=== PATIENT | male | born 1980 | race Caucasian/White ===

== ENCOUNTER 2021-11-23 13:19 | Emergency (ER) | payer OTHER ==
--- NOTE | 2021-11-23 15:10 | ED ---
General Adult HPI - General Source: patient, police, RN notes reviewed, old records reviewed Mode of arrival: ambulatory <Junior Weaver - Last Filed: 11/23/21 19:53> <Junior Montemayor - Last Filed: 11/23/21 23:21> - General Chief complaint: Psychiatric Symptoms Stated complaint: petition Time Seen by Provider: 11/23/21 13:19 - History of Present Illness Initial comments: This is a 41-year-old male who is brought in and petition by the police officers. Patient was brought in because he was acting in a bizarre manner around town he was threatening to throw 100 he also was stating that he killed somebody and that he was going to rape somebody but he wasn't making any sense he was not answering questions appropriately. Patient also made statements that he tested crated somebodies land and because of this the ICU come back and He Started to Cry. Patient did state that he did do methamphetamines (Junior Weaver) - Related Data Allergies Allergy/AdvReac Type Severity Reaction Status Date / Time Unable to Assess Allergy Verified 11/23/21 13:38 Review of Systems ROS Other: All systems not noted in ROS Statement are negative. <Junior Weaver - Last Filed: 11/23/21 19:53> ROS Other: All systems not noted in ROS Statement are negative. <Junior Montemayor - Last Filed: 11/23/21 23:21> ROS Statement: Those systems with pertinent positive or pertinent negative responses have been documented in the HPI. Past Medical History Past Medical History: Unable to Obtain History of Any Multi-Drug Resistant Organisms: Unobtainable Past Surgical History: Unable to Obtain Past Psychological History: Unable to Obtain Smoking Status: Current every day smoker Past Alcohol Use History: None Reported <Junior Weaver - Last Filed: 11/23/21 19:53> General Exam <Junior Weaver - Last Filed: 11/23/21 19:53> - General Exam Comments Initial Comments: GENERAL: Patient is well-developed and well-nourished. Patient is nontoxic and well- hydrated and is in no acute distress. ENT: Neck is soft and supple. No significant lymphadenopathy is noted. Oropharynx is clear. Moist mucous membranes. Neck has full range of motion without eliciting any pain. EYES: The sclera were anicteric and conjunctiva were pink and moist. Extraocular movements were intact and pupils were equal round and reactive to light. Eyelids were unremarkable. PULMONARY: Unlabored respirations. Good breath sounds bilaterally. No audible rales rhonchi or wheezing was noted. CARDIOVASCULAR: There is a regular rate and rhythm without any murmurs gallops or rubs. ABDOMEN: Soft and nontender with normal bowel sounds. SKIN: Skin is clear with no lesions or rashes and otherwise unremarkable. NEUROLOGIC: Patient is alert and oriented unable to ascertain because the patient is very bizarre. Cranial nerves II through XII are grossly intact. Motor and sensory are also intact. Normal speech, volume and content. Symmetrical smile. MUSCULOSKELETAL: Normal extremities with adequate strength and full range of motion. PSYCHIATRIC: Patient is making bizarre statements and is unable to answer questions directly. (Junior Weaver) Course Vital Signs 11/23/21 13:34 Temperature 98.0 F Pulse Rate 105 H Respiratory 18 Rate Blood Pressure 125/86 O2 Sat by Pulse 99 Oximetry Medical Decision Making <Junior Weaver - Last Filed: 11/23/21 19:53> <Junior Montemayor - Last Filed: 11/23/21 23:21> - Medical Decision Making EPS evaluated the patient and determined the patient needed to be admitted (Junior Weaver) 41-year-old male who did come in for psychiatric evaluation, admission for psychiatric evaluation, positive coronavirus test requiring inpatient observation and psychiatric consult (Junior Montemayor) - Lab Data Lab Results 11/23/21 11/23/21 Range/Units 15:45 21:16 Urine Opiates Screen Not Detected (NotDetected) Ur Oxycodone Screen Not Detected (NotDetected) Urine Methadone Screen Not Detected (NotDetected) Ur Propoxyphene Screen Not Detected (NotDetected) Ur Barbiturates Screen Not Detected (NotDetected) U Tricyclic Antidepress Not Detected (NotDetected) Ur Phencyclidine Scrn Not Detected (NotDetected) Ur Amphetamines Screen Not Detected (NotDetected) U Methamphetamines Scrn Not Detected (NotDetected) U Benzodiazepines Scrn Detected H (NotDetected) Urine Cocaine Screen Not Detected (NotDetected) U Marijuana (THC) Screen Detected H (NotDetected) Coronavirus (PCR) Detected A (Not Detectd) Disposition Time of Disposition: 19:54 <Junior Weaver - Last Filed: 11/23/21 19:53> Is patient prescribed a controlled substance at d/c from ED?: No <Junior Montemayor - Last Filed: 11/23/21 23:21> Clinical Impression: Drug-induced psychotic disorder, Coronavirus infection Disposition: ADMITTED IP TO THIS HOSP Condition: Fair Referrals: Becky Maher DO [Primary Care Provider] - 1-2 days
[2021-11-23 17:04] LABS: Amphetamine Screen,Urine Not Detected (NotDetected); Barbiturate Screen,Urine Not Detected (NotDetected); Benzodiazepines Screen,Urine Detected (NotDetected); Cocaine Screen,Urine Not Detected (NotDetected); Methadone Screen, Urine Not Detected (NotDetected); Opiate Screen,Urine Not Detected (NotDetected); Oxycodone Screen, Urine Not Detected (NotDetected); Phencyclidine Screen,Urine Not Detected (NotDetected); Tricyclic Antidepressant,Urine Not Detected (NotDetected); Urn Cannabinoid Scrn Detected (NotDetected)
[2021-11-23] MEDS ORDERED: LORazepam 1 MG TAB PO STA (21:21)
[2021-11-24] MEDS ORDERED: OLANZapine 10 MG VIAL IM PRN (11:50)
--- NOTE | 2021-11-24 12:21 | XR ---
EXAMINATION TYPE: XR chest 1V portable DATE OF EXAM: 11/24/2021 12:09 PM COMPARISON: None TECHNIQUE: XR chest 1V portable Frontal view of the chest. CLINICAL INDICATION:Male, 41 years old with history of pneumonia; FINDINGS: Lungs/Pleura: There is no evidence of pleural effusion, focal consolidation, or pneumothorax. Pulmonary vascularity: Unremarkable. Heart/mediastinum: Cardiomediastinal silhouette is unremarkable. Musculoskeletal: No acute osseous pathology. IMPRESSION: No acute cardiopulmonary disease/process.
[2021-11-24 12:24] LABS: HCT 48.5 % (39.0-53.0); HGB 15.9 gm/dL (13.0-17.5); MCH 30.9 pg (25.0-35.0); MCHC 32.7 g/dL (31.0-37.0); MCV 94.5 fL (80.0-100.0); Mean Platelet Volume 7.1; Platelet Count 369 k/uL (150-450); RBC 5.13 m/uL (4.30-5.90); RDW 12.5 % (11.5-15.5); WBC 11.1 k/uL (3.8-10.6)
[2021-11-24 12:50] LABS: ALT 48 U/L (4-49); AST 33 U/L (17-59); African American GFR (CKD) >90 (>60 ml/min/1.73 sqM); Albumin 4.5 g/dL (3.5-5.0); Albumin/Globulin Ratio 1.5; Alkaline Phosphatase 90 U/L (38-126); Anion Gap 11 mmol/L; Blood Urea Nitrogen 16 mg/dL (9-20); Calcium 9.2 mg/dL (8.4-10.2); Carbon Dioxide 27 mmol/L (22-30); Chloride 101 mmol/L (98-107); Glucose 121 mg/dL (74-99); Non-African American GFR(CKD) >90 (>60 ml/min/1.73 sqM); Potassium 4.8 mmol/L (3.5-5.1); Sodium 139 mmol/L (137-145); Total Bilirubin 1.1 mg/dL (0.2-1.3); Total Protein 7.5 g/dL (6.3-8.2)
--- NOTE | 2021-11-24 13:20 | P.CN ---
Psychiatric Consult - . Consult date: 11/24/21 Consult:: 11/24/21 13:19 IDENTIFYING DATA: This patient is a , self-employed, 41-year-old male with significant history of bipolar disorder who presented to the hospital on 11/23/2021, brought in by police for psychiatric evaluation. HISTORY OF PRESENT ILLNESS: The patient presented to the hospital on 11/23/2021, brought in by police for psychiatric evaluation. The patient was petitioned. As per petition, the patient was swinging a rock and panic attacks around. He stated that he was trying to scare people and he was seeing ghosts. As per EPS report, he was notably paranoid, endorsing auditory and visual hallucinations, and possibly engaged in substance use. He was subsequently admitted to the medical floor due to testing positive for COVID-19. Upon evaluation on the medical floor, the patient does endorse significant psychotic and manic symptoms. He does report that he was recently released from psychiatric unit in [place] however is unable to state exactly when. He is unable to provide a clear history of events leading up to this hospitalization however does endorse homicidal ideation towards "Brien and Williams." He is unable to say exactly why. He does endorse auditory hallucinations in the form of voices telling him to do things. He also states that he receives special messages from the radio and television including the [employer] which is playing in his room. He also expresses that he sees ghosts. In regards to mood symptoms, the patient endorses a significant history of nav and states that he has not been sleeping for days prior to this admission. He reports that he feels like he will sleep better tonight as he is in the hospital. He does report impulsivity and racing thoughts. The patient states that he was on a regimen of Zyprexa and Depakote prior to coming to this hospital however has been nonadherent with these medications. He is agreeable to starting these medications today. PAST PSYCHIATRIC HISTORY: Patient has a history of bipolar disorder. The patient is able to recall Zyprexa and Depakote. The patient reports that he has had 4 inpatient psychiatric hospitalizations with most recently an admission being in [facility]. He is open with [facility]. He denies any prior attempts at suicide. PAST MEDICAL HISTORY: No reported medical problems. ALLERGIES: NO KNOWN DRUG ALLERGIES CHEMICAL DEPENDENCY HISTORY: Patient admits to daily tobacco use. He denies any alcohol or illicit drug use. Although he did report he previously used methamphetamines, he later stated that he actually "ingested real glass with the hopes that it would scrape his insides to clean his colon." He tested negative for any methamphetamines. FAMILY PSYCHIATRIC/SUBSTANCE USE HISTORY: Unable to assess. SOCIAL HISTORY: Patient reports that he was born and [place]. He is . 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 MENTAL STATUS EXAM: General Appearance: Patient appears to be stated age is alert, pleasant, and cooperative. Patient appears to have fair hygiene and grooming wearing hospital gown with fair eye contact. Behavior: Patient is calmly seated upright in his chair without any agitated behavior. Speech: Patient's speech is fluent and nonpressured. Mood/Affect: Patient reports their mood is "I was scared but am better now", affect is slightly expansive and intense. Suicidality/Homicidality: Patient denies any suicidal ideation however endorses a homicidal ideation. Perceptions: Patient endorses both auditory and visual hallucinations. Though content/process: The patient endorses ideas of reference, paranoid delusions, thought insertion, thought projection, flight of ideas, and gross disorganization. Memory and concentration: The patient is alert and oriented to person and place only. Concentration was grossly poor. Judgment and insight: Poor IMPRESSIONS: Bipolar 1 disorder, manic episode versus schizoaffective disorder, bipolar type Tobacco use disorder PLAN: -At this time patient DOES meet criteria for inpatient psychiatric admission. The patient does appear to be overtly psychotic and manic. He will require inpatient psychiatric admission for stabilization and reintroduction of his medications. -Will perform Duty to Warn for Saira when we clarify who these are or will contact the local PD prior to patient discharge. -Would recommend the following medication changes/additions: Start Zyprexa 5 mg by mouth twice a day for mood stabilization/psychosis Start Depakote 1000 mg by mouth at bedtime for mood stabilization - Valproate level ordered. Start Zyprexa 5 mg IM 3 times a day when necessary for agitation -Continue 1:1 sitter for safety -Cannot leave AMA at this time. Patient will need a petition and certification if attempting to leave AMA. -Will continue to follow along -When medically stable, patient is eligible for transfer to a [facility] bed when available. Patient is positive for COVID-19. Laboratory Results WBC 11.1 k/uL (3.8-10.6) H 11/24/21 12:06 RBC 5.13 m/uL (4.30-5.90) 11/24/21 12:06 Hgb 15.9 gm/dL (13.0-17.5) 11/24/21 12:06 Hct 48.5 % (39.0-53.0) 11/24/21 12:06 MCV 94.5 fL (80.0-100.0) 11/24/21 12:06 MCH 30.9 pg (25.0-35.0) 11/24/21 12:06 MCHC 32.7 g/dL (31.0-37.0) 11/24/21 12:06 RDW 12.5 % (11.5-15.5) 11/24/21 12:06 Plt Count 369 k/uL (150-450) 11/24/21 12:06 MPV 7.1 11/24/21 12:06 Sodium 139 mmol/L (137-145) 11/24/21 12:06 Potassium 4.8 mmol/L (3.5-5.1) 11/24/21 12:06 Chloride 101 mmol/L (98-107) 11/24/21 12:06 Carbon Dioxide 27 mmol/L (22-30) 11/24/21 12:06 Anion Gap 11 mmol/L 11/24/21 12:06 BUN 16 mg/dL (9-20) 11/24/21 12:06 Creatinine 0.97 mg/dL (0.66-1.25) 11/24/21 12:06 Est GFR (CKD-EPI)AfAm >90 (>60 ml/min/1.73 sqM) 11/24/21 12:06 Est GFR (CKD-EPI)NonAf >90 (>60 ml/min/1.73 sqM) 11/24/21 12:06 Glucose 121 mg/dL (74-99) H 11/24/21 12:06 Calcium 9.2 mg/dL (8.4-10.2) 11/24/21 12:06 Total Bilirubin 1.1 mg/dL (0.2-1.3) 11/24/21 12:06 AST 33 U/L (17-59) 11/24/21 12:06 ALT 48 U/L (4-49) 11/24/21 12:06 Alkaline Phosphatase 90 U/L (38-126) 11/24/21 12:06 Total Protein 7.5 g/dL (6.3-8.2) 11/24/21 12:06 Albumin 4.5 g/dL (3.5-5.0) 11/24/21 12:06 Globulin 3.0 g/dL 11/24/21 12:06 Albumin/Globulin Ratio 1.5 11/24/21 12:06 Urine Opiates Screen Not Detected (NotDetected) 11/23/21 15:45 Ur Oxycodone Screen Not Detected (NotDetected) 11/23/21 15:45 Urine Methadone Screen Not Detected (NotDetected) 11/23/21 15:45 Ur Propoxyphene Screen Not Detected (NotDetected) 11/23/21 15:45 Ur Barbiturates Screen Not Detected (NotDetected) 11/23/21 15:45 Valproic Acid 30.0 ug/mL 11/24/21 12:06 U Tricyclic Antidepress Not Detected (NotDetected) 11/23/21 15:45 Ur Phencyclidine Scrn Not Detected (NotDetected) 11/23/21 15:45 Ur Amphetamines Screen Not Detected (NotDetected) 11/23/21 15:45 U Methamphetamines Scrn Not Detected (NotDetected) 11/23/21 15:45 U Benzodiazepines Scrn Detected (NotDetected) H 11/23/21 15:45 Urine Cocaine Screen Not Detected (NotDetected) 11/23/21 15:45 U Marijuana (THC) Screen Detected (NotDetected) H 11/23/21 15:45 Coronavirus (PCR) Detected (Not Detectd) A 11/23/21 21:16 Vital Signs Temp 98.4 F 11/24/21 08:00 Pulse 101 H 11/24/21 08:00 Resp 18 11/24/21 08:00 BP 137/80 11/24/21 08:00 Pulse Ox 99 11/24/21 08:00 FiO2 Intake & Output 11/23/21 11/24/21 11/24/21 18:59 06:59 18:59 Intake Total 296 Balance 296 Weight 83.915 kg 83.915 kg Intake: Oral 296 11/24/21 13:20
--- NOTE | 2021-11-24 14:34 | P.HPIM ---
History of Present Illness H&P Date: 11/24/21 (delayed charting seen at 0930) Chief Complaint: Odd behaviors Patient is a 41-year-old male with bipolar disorder, intermittent tobacco use, and prior LSD use who presented to the ER after being brought in by police for psychiatric evaluation. He had been found with urinary and visual hallucinations. He was initially seen in the emergency department and had a urine drug screen completed which was positive for THC and benzodiazepines area he was also found to be positive for Covid and therefore was sent to the medical floor. Patient seen and examined at bedside. He reports that he is feeling much better than yesterday. He states that yesterday he was very "angry" with everyone he just wanted them to listen to what he had to say. He does endorse that he was probably seeing and hearing things. He adamantly denies any recent illicit substance use but states he has used LSD in the past and likes to use it from time to time. He reports that he was feeling as though he could hurt people yesterday but feels much better now. He then tells me he is unsure where he got Covid but believes it was likely from the intermediate in [place]. He states he was there for 2 days last week. He denies any cough, cold, fever, runny nose, he does admit to a sore scratchy throat. He denies any nausea, vomiting. He denies any alcohol use but states he has been eating and drinking well. Pertinent positives and negatives as discussed in HPI, a complete review of systems was performed and all other systems are negative. Vital signs reviewed General: nontoxic, no distress, appears at stated age Derm: warm, dry Head: atraumatic, normocephalic, symmetric Eyes: EOMI, no lid lag, anicteric sclera, pupils equal round reactive to light ENT: Nose and ears atraumatic, no thrush, + pharyngeal erythema Neck: No thyromegaly, no cervical lymphadenopathy, trachea midline, supple Mouth: no lip lesion, mucus membranes moist Cardiovascular: S1S2 reg, no murmur, positive posterior tibial pulse bilateral, no edema, capillary refill less than 2 seconds Lungs: clear to auscultation bilateral, no rhonchi, no rales, no wheeze, no accessory muscle use Abdominal: soft, nontender to palpation, no guarding, no appreciable organomegaly, normal bowel sounds Ext: no gross muscle atrophy, muscle strength muscle strength 5 out of 5 in all 4 extremities, no contractures Neuro: CN II-XII grossly intact, light touch intact all 4 extremities, finger to nose within normal limits, Psych: Alert, oriented, appears anxious and unable to sit still. Assessment/Plan: COVID Infection -I checked stat blood work which revealed a white blood cell count of 11.1 -Check x-ray which revealed no acute process. Bipolar disorder with nav - Psych recs - Repeat inpatient criteria -They have resume patient on Zyprexa and Depakote The patient is admitted with an anticipated less than 2 midnight stay for evaluation of COVID CODE STATUS:full by default DVT prophylaxis: SCDs Discussed with: patient, nursing, psychiatry Anticipated discharge date: in AM Anticipated discharge place: [facility] A total of 55 minutes was spent on the care of this complex patient more than 50% of the time was spent in counseling and care coordination. Past Medical History Past Medical History: No Reported History History of Any Multi-Drug Resistant Organisms: Unobtainable Additional Past Surgical History / Comment(s): pilonidal cyst extraction Past Psychological History: Unable to Obtain Smoking Status: Unknown if ever smoked Past Alcohol Use History: Occasional Past Drug Use History: Marijuana, Methamphetamine Additional Drug Use History / Comment(s): LSD - Past Family History Father Family Medical History: Hypertension Mother Family Medical History: COPD Medications and Allergies Home Medications Medication Instructions Recorded Confirmed Type Divalproex Sodium [Depakote] 500 mg PO HS 11/24/21 11/24/21 History Divalproex [Depakote] 250 mg PO DAILY 11/24/21 11/24/21 History Nicotine Gum (Polacrilex) 2 mg BUCCAL Q2H PRN 11/24/21 11/24/21 History [Nicorette] Temazepam [Restoril] 15 mg PO HS PRN 11/24/21 11/24/21 History chlorproMAZINE HCL [Thorazine] 100 mg PO DIRECTED 11/24/21 11/24/21 History traZODone HCL [Desyrel] 100 mg PO HS 11/24/21 11/24/21 History Allergies Allergy/AdvReac Type Severity Reaction Status Date / Time No Known Allergies Allergy Unverified 11/24/21 09:28 Physical Exam Osteopathic Statement: *. No significant issues noted on an osteopathic structural exam other than those noted in the History and Physical/Consult. Vitals: Vital Signs Temp Pulse Resp BP Pulse Ox 11/24/21 08:00 98.4 F 101 H 18 137/80 99 Intake and Output 11/23/21 11/24/21 11/24/21 22:59 06:59 14:59 Intake Total 296 Balance 296 Intake: Oral 296 Other: Weight 83.915 kg Results CBC & Chem 7: 11/24/21 12:06 11/24/21 12:06 Labs: Abnormal Lab Results - Last 24 Hours (Table) 11/23/21 11/23/21 11/24/21 Range/Units 15:45 21:16 12:06 WBC 11.1 H (3.8-10.6) k/uL Glucose (74-99) mg/dL U Benzodiazepines Scrn Detected H (NotDetected) U Marijuana (THC) Screen Detected H (NotDetected) Coronavirus (PCR) Detected A (Not Detectd) 11/24/21 Range/Units 12:06 WBC (3.8-10.6) k/uL Glucose 121 H (74-99) mg/dL U Benzodiazepines Scrn (NotDetected) U Marijuana (THC) Screen (NotDetected) Coronavirus (PCR) (Not Detectd)
[2021-11-24] MEDS: DIVALPROEX ER 500 MG TAB.ER.24H PO SCH (20:28)
[2021-11-24] MEDS: OLANZapine 5 MG TAB PO SCH (20:28)
[2021-11-25] MEDS: OLANZapine 5 MG TAB PO SCH (08:44)
[2021-11-25] MEDS ORDERED: ACETAMINOPHEN TAB 325 MG TAB PO PRN (09:30)
[2021-11-25] MEDS ORDERED: ONDANSETRON 4 MG/2 ML VIAL IVP PRN (09:30)
[2021-11-25] MEDS ORDERED: BENZOCAINE/MENTHOL LOZENG 1 EACH LOZENGE MUCOUS MEM PRN (14:12)
--- NOTE | 2021-11-25 14:13 | P.PN ---
Subjective Progress Note Date: 11/25/21 (delayed charting seen at 1030) Patient is a 41-year-old male with bipolar disorder, intermittent tobacco use, and prior LSD use who presented to the ER after being brought in by police for psychiatric evaluation. He had been found with urinary and visual hallucinations. He was initially seen in the emergency department and had a urine drug screen completed which was positive for THC and benzodiazepines area he was also found to be positive for Covid and therefore was sent to the medical floor. He has seen by psychiatry and determine to need inpatient psychiatric care, however we have been unable to locate the unit that will take a Covid positive patient. Patient seen and examined at bedside. He reports that his sore throat is slightly better than yesterday. He denies any chest pain, shortness of breath, nausea. He understands that we are looking for placement go for mental health with COVID General: nontoxic, no distress, appears at stated age Derm: warm, dry Head: atraumatic, normocephalic, symmetric Eyes: EOMI, no lid lag, anicteric sclera Mouth: no lip lesion, mucus membranes moist Cardiovascular: S1S2 reg, no murmur, positive posterior tibial pulse bilateral, Lungs: CTA bilateral, no rhonchi, no rales , no accessory muscle use Abdominal: soft, nontender to palpation, no guarding, no appreciable organomegaly Ext: no gross muscle atrophy, no edema, no contractures Neuro: CN II-XI grossly intact, no focal neuro deficits Psych: Alert, oriented, blunted affect Assessment/Plan: COVID Infection - stable - supportive care - add cepachol - recheck COVID swab Bipolar disorder with nav - Psych recs - meets inpatient criteria, but improving -continue Zyprexa and Depakote Objective - Vital Signs Vital signs: Vital Signs Temp 97.5 F L 11/25/21 13:45 Pulse 80 11/25/21 13:45 Resp 18 11/25/21 13:45 BP 147/80 11/25/21 13:45 Pulse Ox 99 11/25/21 13:45 FiO2 Intake & Output 11/24/21 11/25/21 11/25/21 18:59 06:59 18:59 Intake Total 892 592 Balance 892 592 Intake: Oral 892 592 Other: Voiding Method Toilet # Voids 4 4 - Labs CBC & Chem 7: 11/24/21 12:06 11/24/21 12:06
--- NOTE | 2021-11-25 14:15 | P.PN ---
Progress Note - Text Progress Note Date: 11/25/21 Interval History: Patient was seen resting in bed and was directable and agreeable to speak with the marine underwriter in his room. Currently, the patient is reporting that he is feeling significantly better. He reports that he was able to sleep well and that he has a good appetite. He is vehemently denying any suicidal or homicidal ideation, intention, and/or plan. He states that Brien and Williams are actually friends of his and that he was "quite out of it." He states that he has no intention to ever hurt them. He is not reporting any auditory or visual hallucinations at this time. He is currently alert and oriented to person, place, and time. The patient denies any paranoia or other delusions. He has been adherent with his medications and is not endorsing any significant side effects aside from mild sedation. He wishes to take Zyprexa only at bedtime. Mental Status Exam: General Appearance: Patient appears to be stated age is alert, directable, and cooperative. Behavior: Patient is calmly seated without any agitated behavior. Speech: Patient's speech is fluent and nonpressured. Mood/Affect: Mood is improving mildly, affect is congruent and euthymic. Suicidality/Homicidality: Patient denies having any suicidal or homicidal ideation intent or plan. Perceptions: Patient denies any visual hallucinations and denies any auditory hallucinations Though content/process: There is no evidence of any delusional thought content and thought process is linear and goal-directed. Memory and concentration: AOX3, grossly intact for the purposes of this session Judgment and insight: Improving mildly Vital Signs Temp 97.5 F L 11/25/21 13:45 Pulse 80 11/25/21 13:45 Resp 18 11/25/21 13:45 BP 147/80 11/25/21 13:45 Pulse Ox 99 11/25/21 13:45 FiO2 Intake & Output 11/24/21 11/25/21 11/25/21 18:59 06:59 18:59 Intake Total 892 592 Balance 892 592 Intake: Oral 892 592 Other: Voiding Method Toilet # Voids 4 4 Assessment Bipolar 1 disorder, manic episode versus schizoaffective disorder, bipolar type Tobacco use disorder Plan: -Will continue to observe for criteria for inpatient psychiatric admission. Will reassess tomorrow. Patient displayed significant improvement in regards to his target symptoms of psychosis and nav today. -Will perform Duty to Warn for Brien and Williams when we clarify who these are or will contact the local PD prior to patient discharge. Currently, the patient's immediate denying any homicidal ideation and said Alex Williams are actually friends of his and that he was "out of it." -Would recommend the following medication changes/additions: Change Zyprexa to 10 mg by mouth at bedtime for mood stabilization/psychosis Continue Depakote 1000 mg by mouth at bedtime for mood stabilization - Valproate level ordered. Continue Zyprexa 5 mg IM 3 times a day when necessary for agitation -Continue 1:1 sitter for safety -Cannot leave AMA at this time. Patient will need a petition and certification if attempting to leave AMA. -Will continue to follow along
[2021-11-25] MEDS: DIVALPROEX ER 500 MG TAB.ER.24H PO SCH (20:42)
[2021-11-25] MEDS ORDERED: OLANZapine 5 MG TAB PO SCH (21:00)
[2021-11-26 06:32] VITALS: RESP 16; TEMP 97.8
[2021-11-26 10:44] VITALS: BP 114/77; PULSE 66
--- NOTE | 2021-11-26 13:26 | P.DS ---
Providers Date of admission: 11/23/21 23:17 Expected date of discharge: 11/26/21 Attending physician: Kortney Nix MD Consults: 11/23/21 23:17 Consult Physician Routine Consulting Provider: Onel Gonzales Consult Reason/Comments: SI Do you want consulting provider notified?: Already Contacted Primary care physician: Becky Maher Hospital Course: Discharge Diagnosis: Bipolar 1 disorder with manic episode COVID-19 positive Tobacco abuse disorder Hospital Course: Patient is a 41-year-old male with bipolar disorder, intermittent tobacco use, and prior LSD use who presented to the ER after being brought in by police for psychiatric evaluation. He had been found with urinary and visual hallucinations. He was initially seen in the emergency department and had a urine drug screen completed which was positive for THC and benzodiazepines area he was also found to be positive for Covid and therefore was sent to the medical floor. He has seen by psychiatry and determine to need inpatient psychiatric care, however we have been unable to locate the unit that will take a Covid positive patient. His mental health medications were adjusted by psychiatry. He continued to improve and his homicidal ideations abated. Psychiatry cleared for discharge. Patient was subsequently discharged home in stable condition. He was given a 2 week prescription of his new Zyprexa and Depakote doses. He will follow with his primary care physician and his outpatient psychiatry team. Patient seen and examined at bedside. Feeling well. Sore throat has resolved. Having some muscle aching but overall feels better. Since that his mental health is doing much better. Vital signs reviewed and stable. General: nontoxic, no distress, appears at stated age Derm: warm, dry Head: atraumatic, normocephalic, symmetric Eyes: EOMI, no lid lag, anicteric sclera Mouth: no lip lesion, mucus membranes moist Cardiovascular: S1S2 reg, no murmur, positive posterior tibial pulse bilateral, Lungs: CTA bilateral, no rhonchi, no rales , no accessory muscle use Abdominal: soft, nontender to palpation, no guarding, no appreciable organomegaly Ext: no gross muscle atrophy, no edema, no contractures Neuro: CN II-XI grossly intact, no focal neuro deficits Psych: Alert, oriented, appropriate affect A total of 25 minutes of time were spent preparing this complex discharge summary. Patient was discharged on 11/26/21. Patient Condition at Discharge: Stable Plan - Discharge Summary New Discharge Prescriptions: New Divalproex ER [Depakote ER] 1,000 mg PO HS #30 tab OLANZapine [ZyPREXA] 10 mg PO HS #10 tab Continue Nicotine Gum (Polacrilex) [Nicorette] 2 mg BUCCAL Q2H PRN PRN Reason: Cravings Discontinued Divalproex Sodium [Depakote] 500 mg PO HS Divalproex [Depakote] 250 mg PO DAILY chlorproMAZINE HCL [Thorazine] 100 mg PO DIRECTED Temazepam [Restoril] 15 mg PO HS PRN PRN Reason: Insomnia traZODone HCL [Desyrel] 100 mg PO HS Discharge Medication List Nicotine Gum (Polacrilex) [Nicorette] 2 mg BUCCAL Q2H PRN 11/24/21 [History] Divalproex ER [Depakote ER] 1,000 mg PO HS #30 tab 11/26/21 [Rx] OLANZapine [ZyPREXA] 10 mg PO HS #10 tab 11/26/21 [Rx] Follow up Appointment(s)/Referral(s): Becky Maher DO [Primary Care Provider] - 1-2 days Activity/Diet/Wound Care/Special Instructions: Activity: as tolerated Diet: regular Special Instructions: Follow with your mental health provider. Discharge Disposition: HOME SELF-CARE
--- NOTE | 2021-11-26 13:32 | P.PN ---
Progress Note - Text Progress Note Date: 11/26/21 Interval History: Patient was seen resting in bed and was directable and agreeable to speak with the food writer in his room. Currently, the patient is denying any suicidal or homicidal ideation, intention, and/or plan. He is not reporting any auditory or visual hallucinations. He is denying any paranoia or other delusions. Patient has been adherent with his medication and is not endorsing any significant side effects at this time. He reports he has been sleeping well and eating well. He is also not reporting any significant medical symptoms in regards to his Covid- 19 infection. He vehemently denies any homicidal ideation towards "Saira." He is unable to provide last names to this provider. Mental Status Exam: General Appearance: Patient appears to be stated age is alert, directable, and cooperative. Friendly on approach. Behavior: Patient is calmly seated without any agitated behavior. Speech: Patient's speech is fluent and nonpressured. Mood/Affect: Mood is "feeling really good!," affect is bright and friendly. Suicidality/Homicidality: Patient denies having any suicidal or homicidal ideation intent or plan. Perceptions: Patient denies any visual hallucinations and denies any auditory hallucinations Though content/process: There is no evidence of any delusional thought content and thought process is linear and goal-directed. Memory and concentration: AOX3, grossly intact for the purposes of this session Judgment and insight: Improving mildly Vital Signs Temp 97.8 F 11/26/21 06:31 Pulse 66 11/26/21 10:00 Resp 16 11/26/21 06:31 BP 114/77 11/26/21 10:00 Pulse Ox 96 11/26/21 10:00 FiO2 Intake & Output 11/25/21 11/26/21 11/26/21 18:59 06:59 18:59 Intake Total 888 Balance 888 Intake: Oral 888 Other: Voiding Method Toilet # Voids 2 1 1 Assessment Bipolar 1 disorder, manic episode versus schizoaffective disorder, bipolar type Tobacco use disorder Plan: -Patient does not meet criteria for inpatient psychiatric admission. He is not presenting with any imminent risk of harm to self or others and has been calm and cooperative with staff. He does not appear to be overtly manic or psychotic at this time and has been in adherent with his medications. -Patient is currently vehemently denying any homicidal ideation. This provider has left a voicemail with the [facility]'s Department in regards to the patient's earlier homicidal threats towards "Brien and Williams." The patient is currently not reporting any homicidal threats towards anyone in vehemently denies any desire to hurt Brien and Jax. -Medications: Continue Zyprexa 10 mg by mouth at bedtime for mood stabilization/psychosis Continue Depakote 1000 mg by mouth at bedtime for mood stabilization -Discontinue 1:1 sitter. -Patient is cleared psychiatrically for discharge. Recommend outpatient psychiatric follow-up. Patient is open with [facility].
== END 2021-11-26 15:03 | disposition home or self-care (01) ==
LOC: EC 13:19 → 4SSUR 23:17
PROVIDERS: ADMIT Internal Medicine; ATTEND Internal Medicine
DX: F31.2 Bipolar disorder, current episode manic severe with psychotic features (principal); U07.1 COVID-19; F17.200 Nicotine dependence, unspecified, uncomplicated; Z87.01 Personal history of pneumonia (recurrent); Z79.899 Other long term (current) drug therapy; Z87.898 Personal history of other specified conditions; Z82.49 Family history of ischemic heart disease and other diseases of the circulatory system; Z82.5 Family history of asthma and other chronic lower respiratory diseases
CPT/HCPCS: 82075; 99285; 80164; 80053; 85027; 80306; 87635; 71045; G0378 ×4; U0003; U0005